=== PATIENT | female | born 2005 | race Hispanic/Latino ===

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

== ENCOUNTER 2025-02-11 23:47 | Emergency (ER) | payer OTHER, SELFPAY ==
--- NOTE | ~2025-02-11 | CT_ITS ---
EXAMINATION: CT abdomen pelvis w con DATE: 02/12/2025 00:41 INDICATION: Abdomen pain TECHNIQUE: Computed tomography (CT) of the abdomen and pelvis was performed with 100 cc Omnipaque 350 intravenous contrast. The dose-length product was 529.07 mGy-cm. Automated exposure control and iterative reconstruction technique were employed. COMPARISON: None. FINDINGS: Lung bases are unremarkable. Heart size normal. No significant pleural or pericardial effusion. Fatty infiltration of the liver. The spleen, pancreas, adrenal glands and kidneys are unremarkable. Nonobstructive bowel gas pattern. Normal appendix. No significant vascular abnormality. No lymphadenopathy. No abnormal pelvic masses or fluid collections. No free air or free fluid. No acute osseous abnormality. IMPRESSION: 1. No acute abdominal abnormality. Reviewed, dictated and finalized at location O.
[2025-02-11 23:56] VITALS: BP 141/79; PULSE 104; RESP 16; TEMP 36.9; O2SAT 100
[2025-02-12] LABS: BEDSIDEPREGUCG Negative (Negative)
[2025-02-12 00:12] LABS: Hematocrit 39.9 % (37.0-47.0); Hemoglobin 12.9 g/dL (12.0-15.0); Immature Granulocyte Percent A 0.3 % (0-0.5); Lymphocytes Absolute Auto 3.80 K/mm3 (0.9-3.2); Mean Corpuscular HGB Conc 32.3 g/dl (32-36); Mean Corpuscular Hemoglobin 27.3 pg (26-34); Mean Corpuscular Volume 84.5 fl (80-100); Nucleated Red Blood Cells Absolute Auto 0.000 K/mm3 (0.0-0.012); Nucleated Red Blood Cells Perc 0.0 % (0.0-0.2); Platelet Count Result 436 k/mm3 (150-375); Red Blood Count 4.72 M/mm3 (4.2-5.4); White Blood Count 11.6 K/mm3 (4.5-10.0)
[2025-02-12 00:18] LABS: Alanine Aminotransferase 25 U/L (6-35); Albumin Level 4.6 g/dL (3.7-5.6); Alkaline Phosphatase 84 U/L (45-116); Anion Gap 8 mmol/L (4-12); Aspartate Amino Transferase 28 U/L (14-36); Bilirubin,Total 0.4 mg/dL (0.2-1.3); Blood Urea Nitrogen 17 mg/dL (8-21); Calcium 9.4 mg/dL (8.9-10.7); Carbon Dioxide 25 mmol/L (22-30); Chloride 104 mmol/L (98-107); Estimated Glomerular Filt Rate > 60; Glucose 94 mg/dL (65-110); Lipase 76 U/L (23-300); Magnesium 2.0 mg/dL (1.6-2.3); Potassium 3.7 mmol/L (3.4-5.0); Sodium 137 mmol/L (134-143); Total Protein 8.0 g/dL (6.3-8.6)
[2025-02-12 00:35] LABS: Add Urine Microscopic? NO; Appearance Urine Clear (Clear); Glucose Urine UA Negative (Negative); Leukocyte Esterase Ur Negative LEU/UL (Negative); Nitrate Urine Negative (Negative); Specific Grav Ur 1.025 (1.001-1.035)
[2025-02-12] MEDS: SODIUM CHLORIDE 0.9% IV 1,000 ML 999 ML IV CONT (00:44)
--- NOTE | 2025-02-12 01:03 | ED.ABDPAIN ---
HPI - Abdominal Pain General Chief Complaint: Abdominal Pain Stated Complaint: abd pain Time Seen by Provider: 02/11/25 23:54 History of Present Illness HPI narrative: Patient is a 19-year-old female who presents emergency department this evening complaining of generalized abdominal pain. patient is that the pain has been ongoing for the past 2 weeks and it is worse after she eats. States that initially it originated in her mid to lower abdomen but now radiates to her bilateral upper quadrants. Denies any history of gallstones or pancreatitis. Denies any nausea vomiting or diarrhea. No additional symptoms or concerns at this time. Related Data Home Medications ?Medication ?Instructions ?Recorded ?Confirmed ?Last Taken ?Type oral contraceptive PO 09/06/24 11/08/24 Unknown History Allergies Allergy/AdvReac Type Severity Reaction Status Date / Time No Known Allergies Allergy Verified 11/08/24 13:37 Review of Systems Review of Systems: All systems are reviewed and are negative unless stated otherwise in the HPI. [facility] Past Medical History Medical History Sinus headache Facial pain Nasal congestion Allergic rhinitis Hypertrophy of inferior nasal turbinate No pertinent past medical history Social History Social History Social History: Caffeine-None Smoking status: Never smoker Alcohol intake: never Substance use: never Substance use type: does not use Do You Feel Safe in your Home?: Yes Lack of Transportation: No Lack of Food: Never True Current Housing: I Have Housing Concerned About Future Housing: No Difficulty Paying Gas/Electric Bills: No Difficulty Paying for Meds: No Currently Unemployed: No Education: High School Diploma/GED Difficulty w/ Childcare or Family Care: No Exam Narrative: General: Alert, awake, afebrile, in no acute distress. HEENT: PERRL, no rhinorrhea, no post nasal drip, oropharynx clear. Neck: Trachea midline, no JVD, no lymphadenopathy. Cardiovascular: Regular rate and rhythm, no murmurs, rubs or gallops, no peripheral edema. Respiratory: Clear to auscultation bilaterally, no tachypnea, no wheezing, no rhonchi, no rubs, no respiratory distress. Abdomen: Soft, nontender, nondistended, no rebound, no guarding, no peritoneal signs. Musculoskeletal: No joint swelling or deformity, normal muscle tone. Skin: No rashes or petechia, no signs of infection. Psychiatric: Alert and oriented, normal behavior and judgment for situation. Neurological: Alert and oriented to person, place, and time. Follows all commands. No focal deficits, speech is clear and fluent. Course Vital Signs Vital signs: Vital Signs Temperature 98.5 F 02/11/25 23:56 Pulse Rate 104 H 02/11/25 23:56 Respiratory Rate 16 02/11/25 23:56 Blood Pressure 141/79 H 02/11/25 23:56 Pulse Oximetry 100 02/11/25 23:56 Oxygen Delivery Room Air 02/11/25 23:56 Temperature 98.5 F 02/11/25 23:56 Pulse Rate 104 H 02/11/25 23:56 Respiratory Rate 16 02/11/25 23:56 Blood Pressure 141/79 H 02/11/25 23:56 Pulse Oximetry 100 02/11/25 23:56 Oxygen Delivery Room Air 02/11/25 23:56 MDM - Abdominal Pain MDM Narrative Medical decision making narrative: The patient was evaluated by myself in the emergency department. History is obtained from patient who is an independent historian and physical exam was performed. External medical records were reviewed at this time. IV was established and pertinent tests were ordered. Patient was administered 1 L IV fluid bolus with normal saline. Laboratory results obtained revealing no acute process. Urinalysis unremarkable. Imaging studies obtained included CT abdomen pelvis with IV contrast which was independently interpreted by me revealing no acute process, which is pending final radiology interpretation. Differential diagnosis considerations include cholecystitis, biliary colic, pancreatitis, appendicitis, constipation. Comorbidities impacting this visit include none. I have evaluated and discussed social determinants of health with the patient that could potentially impact subsequent diagnosis and treatment plans. On repeat assessment of the patient, reevaluation revealed that the patient is doing well and is in no acute distress. Patient symptoms have improved since she arrived to our emergency department. Repeat vital signs were all reviewed and noted to be stable. Differential diagnosis and treatment plan were discussed with the patient at bedside. Patient agrees with discussion and after shared medical decision making agrees with discharge. All questions were answered to the patient's satisfaction. Patient will follow up with her PCP in 3-5 days. She was also provided with a GI referral instructed to call to set up a follow-up appointment if she continues to have abdominal pain. Patient was provided with strict return precautions and instructed to return to the emergency department if any new or worsening symptoms develop. The patient was discharged in stable condition. Lab Data 02/12/25 00:00 02/11/25 23:59 Labs: Lab Results 02/11/25 02/12/25 Range/Units 23:59 00:00 WBC 11.6 H (4.5-10.0) K/mm3 RBC 4.72 (4.2-5.4) M/mm3 Hgb 12.9 (12.0-15.0) g/dL Hct 39.9 (37.0-47.0) % MCV 84.5 (80-100) fl MCH 27.3 (26-34) pg MCHC 32.3 (32-36) g/dl RDW 13.4 (11.5-14.5) % Plt Count 436 H (150-375) k/mm3 MPV 9.1 (7.4-10.4) fl Immature Gran % (Auto) 0.3 (0-0.5) % Neut % (Auto) 57.5 (45.5-73.1) % Lymph % (Auto) 32.7 (18.3-44.2) % [place] % (Auto) 7.4 (2.6-8.5) % Eos % (Auto) 1.4 (0-4.4) % Baso % (Auto) 0.7 (0.2-1.2) % Lymph # (Auto) 3.80 H (0.9-3.2) K/mm3 [place] # (Auto) 0.9 H (0.1-0.6) K/mm3 Eos # (Auto) 0.2 (0-0.3) K/mm3 Baso # (Auto) 0.1 (0.0-0.1) K/mm3 Abs Immat Gran (auto) 0.04 H (0.00-0.031) K/mm3 Absolute Neuts (auto) 6.7 (1.3-6.7) K/mm3 Absolute Nucleated RBC 0.000 (0.0-0.012) K/mm3 Nucleated RBC % 0.0 (0.0-0.2) % Sodium 137 (134-143) mmol/L Potassium 3.7 (3.4-5.0) mmol/L Chloride 104 (98-107) mmol/L Carbon Dioxide 25 (22-30) mmol/L Anion Gap 8 (4-12) mmol/L BUN 17 (8-21) mg/dL Creatinine 0.74 (0.7-1.0) mg/dL Estim Creat Clear Calc Not Reportable Estimated GFR > 60 (59 - ) Glucose 94 (65-110) mg/dL Calcium 9.4 (8.9-10.7) mg/dL Magnesium 2.0 (1.6-2.3) mg/dL Total Bilirubin 0.4 (0.2-1.3) mg/dL AST 28 (14-36) U/L ALT 25 (6-35) U/L Alkaline Phosphatase 84 (45-116) U/L Total Protein 8.0 (6.3-8.6) g/dL Albumin 4.6 (3.7-5.6) g/dL Lipase 76 (23-300) U/L Urine Color Yellow (Yellow) Urine Appearance Clear (Clear) Urine pH 6.5 (5.0-9.0) Ur Specific [place] 1.025 (1.001-1.035) Urine Protein Negative (Negative) mg/dL Urine Glucose (UA) Negative (Negative) mg/dL Urine Ketones Negative (Negative) mg/dL Ur Blood (Man) Negative (Negative) Urine Nitrate Negative (Negative) Urine Bilirubin Negative (Negative) Urine Urobilinogen 1.0 (<2.0) mg/dL Leukocyte Esterase Rfl Negative (Negative) ELDA/UL POC Urine HCG, Qual Negative (Negative) Discharge Plan Discharge Clinical Impression: Abdominal pain Patient Disposition: Home Condition: Improved Instructions: Antibiotic Form, Abdominal Pain (ED) Additional Instructions: Please follow-up with your family doctor within the next 3-5 days. His emergency department if any new or worsening symptoms develop. Your provided with a GI referral and instructed to call to set up a follow-up appointment if he continued to have abdominal pain. Patient Language: [place] Prescriptions: No Action oral contraceptive PO azelastine 137 mcg (0.1 %) spray,non-aerosol 1 spray intranasal Q12H 30 Days Qty: 30 1RF Rx Instructions: administer into each nostril fluticasone propionate 50 mcg/actuation spray,suspension 2 spray intranasal DAILY 30 Days Qty: 16 1RF Rx Instructions: administer into each nostril Follow-up/Referrals: Sean,MATIAS Bobo [Primary Care Provider] - 1 Week Xu Isbell MD [Physician, Gastroenterology] - 3 Days Time of Disposition: 01:37
[2025-02-12 01:51] VITALS: BP 120/62; PULSE 82; RESP 16; O2SAT 99
== END 2025-02-12 01:51 | disposition home or self-care (01) ==
PROVIDERS: Emergency Provider Emergency Medicine; PCP Registered Nurse
DX: R10.84 Generalized abdominal pain (principal); Z79.3 Long term (current) use of hormonal contraceptives
CPT/HCPCS: 36415; 74177; 80053; 81003; 81025; 83690; 83735; 85025; 96360; 99284; J7030; Q9967

== ENCOUNTER 2025-04-05 02:06 | Emergency (ER) | payer OTHER, SELFPAY ==
[2025-04-05] VITALS (9 sets, daily range): BP systolic 102–130; BP diastolic 54–77; PULSE 75–101; RESP 18–25; TEMP 36.8–36.9; O2SAT 99–100
--- NOTE | ~2025-04-05 | XR_ITS ---
Abdominal radiograph(s) INDICATION: Evaluate stool burden COMPARISON: CT abdomen and pelvis 02/12/2025 TECHNIQUE: 2 views AP abdomen FINDINGS: Scattered colonic gas and stool. Moderate volume. Small bowel loops not well seen. No evidence of organomegaly. No abnormal abdominal calcifications. No acute bony abnormality. IMPRESSION: 1. Moderate volume stool. Reviewed, dictated and finalized at location R. IMPRESSION: 1. Moderate volume stool.
--- OUTSIDE RECORDS SUMMARY | 2025-04-05 02:08 | XMS_ITS | Clinical Summary ---
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
--- OUTSIDE RECORDS SUMMARY | 2025-04-05 02:08 | XMS_ITS | Data Portability ---
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 Assessment Encounter Date Assessment Date Assessment LastModified by Organization Details LastModified Time 10/11/2024 10/11/2024 follow up in one month for sertraline Not available 10/11/2024 13:01:22 Plan of Treatment Reminders Order Date Submit Date Provider Last Modified By Organization Details Last Modified Time Details Appointments NEW PATIE NT 45 2024 01:00P M Ayah Riddle LCSW Not available Not available Not available ANY 15 2024 01:15P M DESIRE WhiteP-Bc Not available Not available Not available ANY 15 2024 09:00A M VASYL White-García Not available Not available Not available Lab gamma -glut amyl trans feras e (ggt) , serum 2024 025 [facility], [address] [facility], [address], [place], [address], 03/07/2025 20:09:52 hepat itis panel (A+B+ C), acute , serum 2024 025 [facility], [address] [facility], [address], [place], [address], 03/07/2025 20:09:51 autoi mmune hepat itis diagn ostic panel , serum 2024 025 [facility], [address], [address], [place], [address], 03/07/2025 20:09:52 lipid panel , serum 2024 025 [facility], [address] [facility], [address], [place], [address], 03/04/2025 23:08:39 CT + NG RNA, PCR, unspe cifie d speci men 2024 025 [facility], [address], [address], [place], [address], 03/07/2025 20:09:52 TSH + free T4, serum 2024 025 [facility], [address] [facility] [address], [address], [place], [address], 11/11/2024 08:28:15 HbA1c (hemo globi n A1c), blood 2024 025 [facility] In-Office Order, Internal Use Only DO Not Attach Compendium DO Not Attach Compendium, Do Not Delete/merge, 11/10/2024 13:51:59 pregn vikki test, urine 2024 In-Office Order, Internal Use Only DO Not Attach Compendium DO Not Attach Compendium, Do Not Delete/merge, 10/11/2024 12:38:55 lipid panel , serum 2024 025 [facility], [address], [address], [place], [address], 07/15/2024 22:07:41 CMP, serum or plasm a 2024 025 [facility], [address], [address], [place], [address], 07/15/2024 22:07:42 HbA1c (hemo globi n A1c), blood 2024 [facility] In-Office Order, Internal Use Only DO Not Attach Compendium DO Not Attach Compendium, Do Not Delete/merge, 07/15/2024 16:54:05 RPR (rapi d plasm a reagi n), serum 2024 [facility], [address] [facility] [address], [address], [place], [address], 07/16/2024 21:07:39 CT + NG RNA, PCR, unspe cifie d speci men 2024 [facility], [address], [address], [place], [address], 07/16/2024 21:07:36 basic metab olic 1998 panel , serum or plasm a 2024 025 [email or web address] [facility], [address], [address], [place], [address], 08/05/2024 10:03:55 CBC w/ auto diff 2024 [facility], [address], [address], [place], [address], 07/15/2024 22:07:44 urina lysis , dipst ick 2024 [facility] In-Office Order, Internal Use Only DO Not Attach Compendium DO Not Attach Compendium, Do Not Delete/merge, 07/15/2024 16:51:54 TSH, ultra -sens itive , serum 2024 [facility], [address] [facility], [address], [place], [address], 07/16/2024 21:07:38 Referral zeyad morales refer ral - 19 y/o HF with worse maninder visua l acuit y. Havin g diffi culty jacki reno at night . She wears glass es. 2024 deyanira [facility], [address], [place], [address], 03/16/2025 14:45:58 cogni tive behav ioral thera py refer ral 2024 [email or web address] Not available 10/15/2024 11:39:28 ENT surge ry refer ral 2024 [facility] (Ent), [facility] [address], [place], [address], 01/17/2025 15:04:13 Procedures None recor ded. Surgeries None recor ded. Imaging US, liver 2024 [facility]), [address] [place], [address], 03/09/2025 09:28:56 Medication Orders Dryso l 20 % topic al solut ion 2024 [facility], [address] [place], [address], 03/04/2025 15:23:33 Pepci d 20 mg table t 2024 025 [facility], [address] [place], [address], 03/04/2025 15:34:43 Slynd 4 mg (28) table t 2024 025 [facility], [address] [place], [address], 11/10/2024 13:35:15 Dryso l 20 % topic al solut ion 2024 [facility], [address] [place], [address], 11/10/2024 13:35:20 sertr gerry 50 mg table t 2024 [facility], [address] [place] [address], [address], 10/11/2024 13:00:59 Linze ss 145 mcg capsu le 2024 [facility], [address] [place] [address], [address], 10/11/2024 12:25:35 hydro corti sone 2.5 % topic al cream with perin eal appli cator 2024 [facility], [address] [place] [address], [address], 10/11/2024 12:25:42 Slynd 4 mg (28) table t 2024 [facility], [address] [place] [address], [address], 07/15/2024 16:40:19 Patient TargetsNo targets recorded. Patient Instructions Encounter Date Encounter Id Patient Instructions Last Modified By Organization Details Last Modified Time 07/15/2024 [id number] vacuna contra la influenza (gripe): instrucciones de cuidado - [influenza (flu) vaccine: care instructions] yarauz Not available 07/15/2024 16:11:29 Cuando desea baj ar de peso: Instrucciones de cuidado - [When You Want to Lose Weight: Care Instructions] yarauz Not available 07/15/2024 16:11:28 per odos menstruales abundantes: instrucciones de cuidado - [heavy menstrual periods: care instructions] yarauz Not available 07/15/2024 16:37:28 aprenda acerca d el peso saludable - [learning about healthy weight] yarauz Not available 07/15/2024 16:11:28 ndice de masa corporal: instrucciones de cuidado - [body mass index: care instructions] yarauz Not available 07/15/2024 16:11:29 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 need for daily exercise, diet management drink water auto relaxation -Always present to ER or [...] months Healthy diet Increase physical activity Abstinence/condoms yarauz Not available 07/15/2024 16:41:21 07/29/2024 [id number] estre imiento: instrucciones de cuidado - [constipation: care instructions] yarauz Not available 07/29/2024 15:17:10 hemorroides: instrucciones de cuidado - [hemorrhoids: care instructions] yarauz Not available 07/29/2024 15:17:10 Drink at least 6 5 ounces of water daily Increase fiber ie fruit vegetables May try Fiber One or Raisin BRan May add Flaxseed Powder 1-3 Tablespoons in liquids or salads etc., If several days with no BMs 4-5 days may try Miralax as per bottle directions yarauz Not available 07/29/2024 15:17:09 10/11/2024 [id number] A healthy lifestyle: care instructions Not available 10/11/2024 12:38:55 Cuando desea baj ar de peso: Instrucciones de cuidado - [When You Want to Lose Weight: Care Instructions] Not available 10/11/2024 12:38:55 11/10/2024 [id number] Cuando desea baj ar de peso: Instrucciones de cuidado - [When You Want to Lose Weight: Care Instructions] yarauz Not available 11/10/2024 13:35:15 aprenda sobre m todos anticonceptivos: P ldoras combinadas - [learning about control: combination pills] yarauz Not available 11/10/2024 13:35:15 sudoraci n anormal: instrucciones de cuidado - [abnormal sweating: care instructions] yarauz Not available 11/10/2024 13:35:14 sudoraci n anormal: instrucciones de cuidado - [abnormal sweating: care instructions] yarauz Not available 11/10/2024 13:35:15 Risks of hormona l control reviewed, including but not limited to thrombosis, embolism, pulmonary embolism, stroke, disability, sexual dysfunction & . Patient understands these risk are increased with smoking. Patient understands that these risks may be increased when using the patch (Ortho-Evra) or the vaginal ring (Nuva-Ring) when compared to oral control pills. Risks of bone loss with Depo Provera also reviewed. All questions answered. Pt understands & accepts risks. Instructions/warnin g signs given. yarauz Not available 11/10/2024 13:35:32 03/04/2025 [id number] sudoraci n anormal: instrucciones de cuidado - [abnormal sweating: care instructions] yarauz Not available 03/04/2025 15:23:28 dolor abdominal: instrucciones de cuidado - [abdominal pain: care instructions] yarauz Not available 03/04/2025 15:34:35 Cuando harsh tory mcghee de peso: Instrucciones de cuidado - [When You Want to Lose Weight: Care Instructions] yarauz Not available 03/04/2025 15:23:27 visual acuity* yarauz Not available 0 03/04/2025 17:24:43 Weight loss lead s to improvement in liver biochemical tests, liver histology, serum insulin levels and quality of life. Maintain a healthy weight. Lose weight if you are overweight or obese Eat a healthy diet. Try to limit salt and sugar. You can eat fruits, vegetables and whole grains. The Mediterranean Diet is a good choice. Exercise regularly. This can help you lose weight and reduce fat in the liver Lower your cholesterol and triglycerides Avoid alcohol Only take medicines that you need and follow dosing recommendations. If you want to take any dietary supplements like vitamins and herbal remedies, please call the office first. No Tylenol yaraary Not available 03/04/2025 15:47:46 abnormal lipids: In order to manage needs to make LSM. 1. Reduced saturated and trans fats found in red meat, butter, full dairy products and processed foods. 2. Increase intake of healthy fats, such as monounsaturated fats (Avocadoes, olive oil, nuts) and polyunsaturated fats like fatty fish such as salmon, flaxseeds, mackerel-omega 3 fatty acids. 3. Boost fiber consumption-soluble fiber found in lentils, beans, fruits which help lower LDL and ApoB levels. 4. Limit refined carbs and added sugar 5. consider plant based diet and /or mediterranean diet 6. increase physical activity at least 150 minutes of moderate intensity aerobics ie walking, cycling, swimming, elliptical 7. incorporate strength training exercises to build lean muscle 8. Stay active, avoid prolonged sitting periods 9. achieve and maintain a healthy weight 10. Manage stress 11. Quit smoking and limit alcohol intake Dermatology consult for potential botox for hyperhydrosis Weight loss leads to improvement in liver biochemical tests, liver histology, serum insulin levels and quality of life. Maintain a healthy weight. Lose weight if you are overweight or obese Eat a healthy diet. Try to limit salt and sugar. You can eat fruits, vegetables and whole grains. The Mediterranean Diet is a good choice. Exercise regularly. This can help you lose weight and reduce fat in the liver Lower your cholesterol and triglycerides Avoid alcohol Only take medicines that you need and follow dosing recommendations. If you want to take any dietary supplements like vitamins and herbal remedies, please call the office first. 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 Having difficulty driving at night. She wears glasses. Referring Physician: Jeramie Mast, [facility], Encounter Date: 03/04/2025 Results Created Date Observation Date Name Description Value Unit Range Abnormal Flag Note LastModifiedBy Organization Detail LastModifiedTime 07/15/1907/15/2024 LIPID PANEL cholesterol, total 191 mg/dL 100-16 9 above high normal Not Available [facility] [address] [place], [address], 07/15/2024 22:07:41 07/15/19 25 07/15/2024 LIPID PANEL triglyceride s 88 mg/dL 0-89 Not Available [facility] [address] [place], [address], 07/15/2024 22:07:41 07/15/1907/15/2024 LIPID PANEL HDL cholesterol 56 mg/dL 40-999 Not Available [facility] [address] [place], [address], 07/15/2024 22:07:41 07/15/19 25 07/15/2024 LIPID PANEL VLDL cholesterol martita 18 mg/dL 5-40 Not Available [facility] [address] [place], [address], 07/15/2024 22:07:41 07/15/19 25 07/15/2024 LIPID PANEL LDL chol calc (nih) 130 mg/dL 0-109 above high normal Not Available [facility] [address] [place], [address], 07/15/2024 22:07:41 07/15/19 25 07/15/2024 COMP. METAB OLIC PANEL (14) glucose 84 mg/dL 70-99 Not Available [facility] [address] [place] [address], [address], 07/15/2024 22:07:42 07/15/19 25 07/15/2024 COMP. METAB OLIC PANEL (14) BUN 14 mg/dL 6-20 Not Available [facility] [address] [place] [address], [address], 07/15/2024 22:07:42 07/15/19 25 07/15/2024 COMP. METAB OLIC PANEL (14) creatinine 0.49 mg/dL 0.76-1 .27 below low normal Not Available [facility] [address] [place] [address], [address], 07/15/2024 22:07:42 07/15/19 25 07/15/2024 COMP. METAB OLIC PANEL (14) eGFR 139 >=60 Units for eGFR value s are mL/mi n/1.7 3 The eGFR Calcu latio n has not been valid ated for patie nts under the age of 18. If test resul ts are displ ayed for a patie nt under the age of 18, disre shannon that value . Not Available [facility] [address] [place] [address], [address], 07/15/2024 22:07:42 07/15/19 25 07/15/2024 COMP. METAB OLIC PANEL (14) BUN/creatini ne ratio 29 9-23 above high normal Not Available [facility] [address] [place] [address], [address], 07/15/2024 22:07:42 07/15/19 25 07/15/2024 COMP. METAB OLIC PANEL (14) sodium 139 mmol/ L 134-14 4 Not Available [facility] [address] [place], [address], 07/15/2024 22:07:42 07/15/19 25 07/15/2024 COMP. METAB OLIC PANEL (14) potassium 4.2 mmol/ L 3.5-5. 2 Not Available [facility] [address] [place] [address], [address], 07/15/2024 22:07:42 07/15/19 25 07/15/2024 COMP. METAB OLIC PANEL (14) chloride 102 mmol/ L 96-106 Not Available [facility] [address] [place] [address], [address], 07/15/2024 22:07:42 07/15/19 25 07/15/2024 COMP. METAB OLIC PANEL (14) carbon dioxide, total 27 mmol/ L 20-29 Not Available [facility] [address] [place], [address], 07/15/2024 22:07:42 07/15/19 25 07/15/2024 COMP. METAB OLIC PANEL (14) calcium 9.7 mg/dL 8.7-10 .2 Not Available [facility] [address] [place] [address], [address], 07/15/2024 22:07:42 07/15/19 25 07/15/2024 COMP. METAB OLIC PANEL (14) protein, total 7.7 g/dL 6.0-8. 5 Not Available [facility] [address] [place], [address], 07/15/2024 22:07:42 07/15/19 25 07/15/2024 COMP. METAB OLIC PANEL (14) albumin 4.5 g/dL 4.0-5. 0 Not Available [facility] [address] [place], [address], 07/15/2024 22:07:42 07/15/19 25 07/15/2024 COMP. METAB OLIC PANEL (14) globulin, total 3.2 g/dL 1.5-4. 5 Not Available [facility] [address] [place], [address], 07/15/2024 22:07:42 07/15/19 25 07/15/2024 COMP. METAB OLIC PANEL (14) A/G ratio 1.0 1.2-2. 2 below low normal Not Available [facility] [address] [place], [address], 07/15/2024 22:07:42 07/15/19 25 07/15/2024 COMP. METAB OLIC PANEL (14) bilirubin, total 0.3 mg/dL 0.0-1. 2 Not Available [facility] [address] [place], [address], 07/15/2024 22:07:42 07/15/19 25 07/15/2024 COMP. METAB OLIC PANEL (14) alkaline phosphatase 100 IU/L 42-106 Not Available [facility] [address] [place], [address], 07/15/2024 22:07:42 07/15/19 25 07/15/2024 COMP. METAB OLIC PANEL (14) AST (SGOT) 20 IU/L 0-40 Not Available [facility] [address] [place], [address], 07/15/2024 22:07:42 07/15/19 25 07/15/2024 COMP. METAB OLIC PANEL (14) ALT (SGPT) 21 IU/L 0-32 Not Available [facility] [address] [place], [address], 07/15/2024 22:07:42 07/15/19 25 07/15/2024 CBC WITH DIFFE RENTI AL/PL ATELE T WBC 9.8 x10e3 /uL 3.4-10 .8 Not Available [facility] [address] [place], [address], 07/15/2024 22:07:43 07/15/19 25 07/15/2024 CBC WITH DIFFE RENTI AL/PL ATELE T RBC 4.72 x10e6 /uL 3.77-5 .28 Not Available [facility] [address] [place], [address], 07/15/2024 22:07:43 07/15/19 25 07/15/2024 CBC WITH DIFFE RENTI AL/PL ATELE T hemoglobin 12.2 g/dL 11.1-1 5.9 Not Available [facility] [address] [place], [address], 07/15/2024 22:07:43 07/15/19 25 07/15/2024 CBC WITH DIFFE RENTI AL/PL ATELE T hematocrit 37.8 % 34.0-4 6.6 Not Available [facility] [address] [place], [address], 07/15/2024 22:07:43 07/15/19 25 07/15/2024 CBC WITH DIFFE RENTI AL/PL ATELE T MCV 80 fL 79-97 Not Available [facility] [address] [place], [address], 07/15/2024 22:07:43 07/15/19 25 07/15/2024 CBC WITH DIFFE RENTI AL/PL ATELE T MCH 25.8 pg 26.6-3 3.0 below low normal Not Available [facility] [address] [place], [address], 07/15/2024 22:07:43 07/15/19 25 07/15/2024 CBC WITH DIFFE RENTI AL/PL ATELE T MCHC 32.3 g/dL 31.5-3 5.7 Not Available [facility] [address] [place], [address], 07/15/2024 22:07:43 07/15/19 25 07/15/2024 CBC WITH DIFFE RENTI AL/PL ATELE T RDW 13.7 % 11.5-1 4.5 Not Available [facility] [address] [place], [address], 07/15/2024 22:07:43 07/15/19 25 07/15/2024 CBC WITH DIFFE RENTI AL/PL ATELE T platelets 520 x10e3 /uL 150-45 0 above high normal Not Available [facility] [address] [place], [address], 07/15/2024 22:07:43 07/15/19 25 07/15/2024 CBC WITH DIFFE RENTI AL/PL ATELE T neutrophils 61 % notest b. Not Available [facility] [address] [place], [address], 07/15/2024 22:07:43 07/15/19 25 07/15/2024 CBC WITH DIFFE RENTI AL/PL ATELE T lymphs 31 % notest b. Not Available [facility] [address] [place], [address], 07/15/2024 22:07:43 07/15/19 25 07/15/2024 CBC WITH DIFFE RENTI AL/PL ATELE T monocytes 6 % notest b. Not Available [facility] [address] [place], [address], 07/15/2024 22:07:43 07/15/19 25 07/15/2024 CBC WITH DIFFE RENTI AL/PL ATELE T eos 1 % notest b. Not Available [facility] [address] [place], [address], 07/15/2024 22:07:43 07/15/19 25 07/15/2024 CBC WITH DIFFE RENTI AL/PL ATELE T basos 1 % notest b. Not Available [facility] [address] [place], [address], 07/15/2024 22:07:43 07/15/19 25 07/15/2024 CBC WITH DIFFE RENTI AL/PL ATELE T neutrophils (absolute) 6.0 x10e3 /uL 1.4-7. 0 Not Available [facility] [address] [place], [address], 07/15/2024 22:07:43 07/15/19 25 07/15/2024 CBC WITH DIFFE RENTI AL/PL ATELE T lymphs (absolute) 3.0 x10e3 /uL 0.7-3. 1 Not Available [facility] [address] [place], [address], 07/15/2024 22:07:43 07/15/19 25 07/15/2024 CBC WITH DIFFE RENTI AL/PL ATELE T monocytes(ab solute) 0.6 x10e3 /uL 0.1-0. 9 Not Available [facility] [address] [place], [address], 07/15/2024 22:07:43 07/15/19 25 07/15/2024 CBC WITH DIFFE RENTI AL/PL ATELE T eos (absolute) 0.1 x10e3 /uL 0.0-0. 4 Not Available [facility] [address] [place], [address], 07/15/2024 22:07:43 07/15/19 25 07/15/2024 CBC WITH DIFFE RENTI AL/PL ATELE T baso (absolute) 0.1 x10e3 /uL 0.0-0. 2 Not Available [facility] [address] [place], [address], 07/15/2024 22:07:43 07/15/19 25 07/15/2024 CBC WITH DIFFE RENTI AL/PL ATELE T immature granulocytes 0.3 % notest b. Not Available [facility] [address] [place], [address], 07/15/2024 22:07:43 07/15/19 25 07/15/2024 CBC WITH DIFFE RENTI AL/PL ATELE T immature grans (abs) 0.0 x10e3 /uL 0.0-0. 1 Not Available [facility] [address] [place], [address], 07/15/2024 22:07:43 07/15/19 25 07/15/2024 CBC WITH DIFFE RENTI AL/PL ATELE T NRBC 0 % 0-0 Not Available [facility] [address] [place], [address], 07/15/2024 22:07:43 07/15/19 25 07/16/2024 CHLAM YDIA/ GC AMPLI FICAT ION chlamydia trachomatis, MARK NEGATI VE negati ve Not Available [facility] ([facility]) [address] [place], [address], 07/16/2024 21:07:36 07/15/19 25 07/16/2024 CHLAM YDIA/ GC AMPLI FICAT ION neisseria gonorrhoeae, MARK NEGATI VE negati ve Not Available [facility] ([facility]) [address] [place], [address], 07/16/2024 21:07:36 07/15/19 25 07/16/2024 TSH RFX ON ABNOR MAL TO FREE T4 TSH 0.840 uIU/m L 0.450- 4.500 Not Available [facility] ([facility]) [address] [place], [address], 07/16/2024 21:07:37 07/15/19 25 07/16/2024 RPR, RFX QN RPR/C ONFIR M TP RPR NON REACTI VE nonrea ctive Not Available [facility] ([facility]) [address] [facility], [place], [address], 07/16/2024 21:07:39 07/15/19 25 07/15/2024 HbA1c (hemo [...] DO Not Attach Compendium, Do Not Delete/merge, Counts include 234 beds at the [facility] 07/15/2024 16:09:42 07/15/19 25 07/15/2024 urina lysis , dipst ick Blood Negati ve Not Available In-Office Order Internal Use Only DO Not Attach Compendium DO Not Attach Compendium, Do Not Delete/merge, Counts include 234 beds at the [facility] 07/15/2024 16:09:42 07/15/19 25 07/15/2024 urina lysis , dipst ick Specific Gantt 1.025 Not Available In-Off ice Order Internal Use Only DO Not Attach Compendium DO Not Attach Compendium, Do Not Delete/merge, Counts include 234 beds at the [facility] 07/15/2024 16:09:42 07/15/19 25 07/15/2024 urina lysis , dipst ick Ketone Negati ve Not Available In-Office Order Internal Use Only DO Not Attach Compendium DO Not Attach Compendium, Do Not Delete/merge, Counts include 234 beds at the [facility] 07/15/2024 16:09:42 07/15/19 25 07/15/2024 urina lysis , dipst ick Bilirubin Negati ve Not Available In-Office Order Internal Use Only DO Not Attach Compendium DO Not Attach Compendium, Do Not Delete/merge, Counts include 234 beds at the [facility] 07/15/2024 16:09:42 07/15/19 25 07/15/2024 urina lysis , dipst ick Glucose Negati ve Not Available In-Office Order Internal Use Only DO Not Attach Compendium DO Not Attach Compendium, Do Not Delete/merge, Counts include 234 beds at the [facility] 07/15/2024 16:09:42 07/15/19 25 07/15/2024 urina lysis , dipst ick Appearance Clear Not Available In-Offi ce Order Internal Use Only DO Not Attach Compendium DO Not Attach Compendium, Do Not Delete/merge, Counts include 234 beds at the [facility] 07/15/2024 16:09:42 07/15/19 25 07/15/2024 urina lysis , dipst ick Color Yellow Not Available In-Office Order Internal Use Only DO Not Attach Compendium DO Not Attach Compendium, Do Not Delete/merge, [id number] 07/15/2024 16:09:42 10/12/19 25 10/11/2024 pregn vikki test, urine HCG negati ve Not Available In-Office Order Internal Use Only DO Not Attach Compendium DO Not Attach Compendium, Do Not Delete/merge, [id number] 10/11/2024 12:29:12 11/11/19 25 11/11/2024 TSH+F REE T4 TSH 0.718 uIU/m L 0.450- 4.500 Not Available [facility] ([facility]) [address] [facility], [place], [address], 11/11/2024 08:28:15 11/11/19 25 11/11/2024 TSH+F REE T4 T4,free(dire ct) 1.15 NG/dL 0.93-1 .60 Not Available [facility] ([facility]) [address] [facility], [place], [address], 11/11/2024 08:28:15 11/11/19 25 11/10/2024 HbA1c (hemo globi n A1c), blood HbA1c 5.2 Not Available In-Office Order Internal Use Only DO Not Attach Compendium DO Not Attach Compendium, Do Not Delete/merge, [id number] 11/10/2024 13:26:27 03/04/20 25 03/04/2025 LIPID PANEL cholesterol, total 192 mg/dL 100-16 9 above high normal Not Available [facility] [address] [place], [address], 03/04/2025 23:08:39 03/04/20 25 03/04/2025 LIPID PANEL triglyceride s 133 mg/dL 0-89 above high normal Not Available [facility] [address] [place], [address], 03/04/2025 23:08:39 03/04/20 25 03/04/2025 LIPID PANEL HDL cholesterol 52 mg/dL 40-999 Not Available [facility] [address] [place], [address], 03/04/2025 23:08:39 03/04/20 25 03/04/2025 LIPID PANEL VLDL cholesterol martita 27 mg/dL 5-40 Not Available [facility] [address] [place], [address], 03/04/2025 23:08:39 03/04/20 25 03/04/2025 LIPID PANEL LDL chol calc ([facility]) 133 mg/dL 0-109 above high normal Not Available [facility] [address] [place], [address], 03/04/2025 23:08:39 03/04/20 25 03/05/2025 ACUTE HEPAT ITIS hep A Ab, IgM NEGATI VE negati ve A negat anastasia anti- HAV IgM resul t sugge sts no recen t or curre nt HAV infec tion. Not Available [facility] ([facility]) [address] [place], [address], 03/07/2025 20:09:50 03/04/20 25 03/05/2025 ACUTE HEPAT ITIS HBsAg screen NEGATI VE negati ve Not Available [facility] ([facility]) [address] [place], [address], 03/07/2025 20:09:50 03/04/20 25 03/05/2025 ACUTE HEPAT ITIS hep B core Ab, IgM NEGATI VE negati ve Not Available [facility] ([facility]) [address] [place], [address], 03/07/2025 20:09:50 03/04/20 25 03/05/2025 ACUTE HEPAT ITIS HCV Ab NON REACTI VE nonrea ctive Not Available [facility] ([facility]) [address] [place], [address], 03/07/2025 20:09:50 03/04/20 25 03/05/2025 INTER PRETA TION: interpretati on: Commen t Not infec reyna with HCV unles s early or acute infec tion is suspe cted (whic h may be delay ed in an immun ocomp romis ed indiv idual ), or other evide nce exist s to indic ate HCV infec tion. Not Available [facility] ([facility]) [address] [place], [address], 03/07/2025 20:09:51 03/04/2003/07/2025 CHLAM YDIA/ GC AMPLI FICAT ION chlamydia trachomatis, MARK NEGATI VE negati ve Not Available [facility] ([facility]) [address] [place], [address], 03/07/2025 20:09:51 03/04/2003/07/2025 CHLAM YDIA/ GC AMPLI FICAT ION neisseria gonorrhoeae, MARK NEGATI VE negati ve Not Available [facility] ([facility]) [address] [facility] [place], [place], [address], 03/07/2025 20:09:51 03/04/2003/05/2025 TARAN+A MA+ MA+LK M AB actin (smooth muscle) antibody 6 units 0-19 Negat anastasia 0 - 19 Weak posit anastasia 20 - 30 Moder ate to stron g posit anastasia >30 Actin Antib odies are found in 52-85 % of patie nts with autoi mmune hepat itis or chron ic activ e hepat itis and in 22% of patie nts with prima ry bilia ry cirrh osis. Not Available [facility] ([facility]) [address] [place], [address], 03/07/2025 20:09:52 03/04/20 25 03/05/2025 TARAN+A MA+ MA+LK M AB mitochondria l (M2) antibody <20.0 units 0.0-20 .0 Negat anastasia 0.0 - 20.0 Equiv ocal 20.1 - 24.9 Posit anastasia >24.9 Mitoc hondr ial (M2) Antib odies are found in 90-96 % of patie nts with prima ry bilia ry cirrh osis. Not Available [facility] ([facility]) [address] [facility] [place], [place], [address], 03/07/2025 20:09:52 03/04/20 25 03/07/2025 TARAN+A MA+ MA+LK M AB TARAN direct NEGATI VE negati ve Not Available [facility] ([facility]) [address] [facility] [place], [place], [address], 03/07/2025 20:09:52 03/04/2003/07/2025 TARAN+A MA+ MA+LK M AB liver-kidney microsomal Ab 1.5 units 0.0-20 .0 Negat anastasia 0.0 - 20.0 Equiv ocal 20.1 - 24.9 Posit anastasia >24.9 LKM type 1 antib odies are detec reyna in patie nts with autoi mmune hepat itis type 2 and in up to 8% of patie nts with chron ic HCV infec tion. Not Available [facility] ([facility]) [address] [facility] [place], [place], [address], 03/07/2025 20:09:52 03/04/20 25 03/05/2025 GGT GGT 25 IU/L 0-60 Not Available [facility] ([facility]) [address] [facility] [place], [place], [address], 03/07/2025 20:09:52 03/04/2003/04/2025 visua l acuit y* R Eye Uncorrected Not Available In-O ffice Order Internal Use Only DO Not Attach Compendium DO Not Attach Compendium, Do Not Delete/merge, [id number] 03/04/2025 15:42:25 03/04/20 25 03/04/2025 visua l acuit y* L Eye Uncorrected Not Available In-O ffice Order Internal Use Only DO Not Attach Compendium DO Not Attach Compendium, Do Not Delete/merge, [id number] 03/04/2025 15:42:25 02/13/20 25 02/12/2025 CT, abdom en + pelvi s, w/ contr ast No observ ation record ed. [facility] [address], [place], [address], 03/04/2025 15:13:00 03/09/20 25 03/08/2025 US, liver No observ ation record ed. [facility] [address], [place], [address], 03/09/2025 12:16:01 Result Notes None recorded. Problems Name Problem SNOMED Code Status Onset Date Resolution Date Notes Provider Name and Address Organization Details Recorded Time Upper respiratory infection 81950999 Completed 10/13/2014 LANDON Child, [place] - [facility] 6 12:53:35 Impacted cerumen 26644169 Completed 10/13/2014 Socorro Fallon RN null, [place] - [place] [facility] 12:53:35 Lesion of lip 467529904 Completed 02/27/2016 LANDON Child, [place] - [facility] 6 12:53:35 Oral lipoma 086020790 Completed 02/27/2016 Liya Fallon RN null, [place] - [place] 6 12:53:35 Upper respiratory infection 62902287 Completed 02/27/2016 Socorro Fallon RN null, [place] - [place] [facility] 12:53:35 Obesity 682865679 Active Jeramie Mast [employer] WORKER- Attn: Milan g,[address] [facility], [place], [address], [place] [facility] 3 16:08:03 Impacted cerumen 65531602 Completed 02/27/2016 LANDON Child, [place] - [facility] 6 12:53:35 Hearing test abnormal 461842851 Completed 01/01/2017 LANDON Child, [place] - [facility] 7 11:43:49 Excessive cerumen in ear canal 319650009 Completed 01/01/2017 Socorro Fallon RN [place] [facility] 7 11:25:27 Allergic rhinitis 78094033 Active Socorro Fall[place] RN [place] [facility] 6 12:53:35 Dyslipidemi a 344193270 Active 2019 ISAIAS White Attn: Accountin bisi,[address] [place], [address], [place] [facility] 5 15:22:21 Dysmenorrhe a 864651659 Active 2021 ISAIAS White Attn: Accountin g,[address] [place], [address], [place] [facility] 3 16:08:03 Increased body mass index 36546529 Active 2022 ISAIAS White Attn: Accountin g,[address] [place], [address], [place] [facility] 3 17:04:07 Childhood obesity 143309959 Active 2022 ISAIAS White Attn: Accountisaac g,[address] [place], [address], [place] [facility] 3 17:04:06 Closed, displaced fracture of nasal bone 267225232 Active 2023 ISAIAS White Attn: Accountin g,[address] [place], [address], [place] [facility] 4 16:12:26 Body mass index 30+ - obesity 136191339 Active 2024 ISAIAS White Attn: Accountin g,[address] [place], [address], [place] [facility] 5 16:09:04 Menorrhagia 940238498 Active 2024 ISAIAS White Attn: Milan mathews,[address] [facility], [place], [address], [facility] - [facility] 5 16:37:26 Generalized anxiety disorder 24215966 Active 2024 ISAIAS White Attn: Milan mathews,[address] [facility], [place], [address], [facility] 5 13:48:45 Generalized hyperhidros is 290290672 Active 2024 ISAIAS White Attn: Accountisaac mathews,[address] [facility], [place], [address], [facility] - [facility] 5 13:49:22 Uses oral contracepti on 0780340 Active 2024 ISAIAS White Attn: Milan mathews,[address] [facility], [place], [address], [facility] - [facility] 5 15:18:01 Reduced visual acuity 41861212 Active 2024 ISAIAS White Attn: Milan mathews,[address] [facility], [place], [address], [facility] - [facility] 5 15:43:20 Steatotic liver disease 374656921 Active 2024 ISAIAS White Attn: Milan mathews,[address] [facility], [place], [address], [facility] - [facility] 5 15:47:31 Generalized abdominal pain 051651685 Active 2024 ISAIAS White Attn: Milan mathews,[address] [facility], [place], [address], [facility] - [facility] 5 17:24:28 Problem Notes None recorded. Procedures Surgical History Date Name Laterality Status Provider Name and Address Organization Details Recorded Time 4 Cerumen Removal completed ISAIAS White Attn: Accounting,[address] [facility], [place], [address], [place] [facility] 05/18/2014 13:26:25 Imaging Results None recorded. Procedure Notes None recorded. Medical Equipment None Reported. Allergies No known drug allergies Medications Name Sig Start Date Stop Date Status Note LastModified by Organization Details LastModified Time cyclobenzap rine 10 mg tablet 07/29 completed Not Available Not Available Not Available montelukast [...] completed Not Available Not Available Not Available doxycycline hyclate 100 mg capsule TAKE 2 CAPSULES BY MOUTH TOGETHER FOR THE FIRST DAY, THEN TAKE 1 CAPSULE ONCE A DAY FOR 20 DAYS 03/04 completed Not Available Not Available Not Available [...] completed Not Available Not Available Not Available hydrocortis one 2.5 % topical cream with perineal applicator APPLY A THIN LAYER TO THE AFFECTED AREA(S) BY TOPICAL ROUTE 2-4 TIMESDAIL Y 10/11 completed Not Available Not Available Not Available famotidine 20 mg tablet TAKE 1 TABLET BY MOUTH TWICE DAILY BEFORE MEAL(S) active Not Available Not Available No t Available oseltamivir 75 mg capsule Take 1 capsule twice a day by oral route for 5 days. 05/03 completed Not Available Not Available Not Available ibuprofen 400 mg tablet TAKE 1 TABLET BY MOUTH EVERY 6 HOURS 07/29 completed Not Available Not Available Not Available docusate sodium 100 mg capsule Take 1 capsule every day by oral route. 10/11 completed Not Available Not Available Not Available azithromyci n 100 mg/5 mL oral suspension 08/07 completed Not Available Not Available Not Available prednisolon e 15 mg/5 mL oral solution 07/10 completed Not Available Not Available Not Available azelastine 137 mcg (0.1 %) nasal spray USE 1 SPRAY(S) IN EACH NOSTRIL EVERY 12 HOURS active Not Available Not Available No t Available fluticasone propionate 50 mcg/actuati on nasal spray,suspe nsion USE 2 SPRAY(S) IN EACH NOSTRIL ONCE DAILY 03/04 completed Not Available Not Available Not Available sertraline 50 mg tablet TAKE 1 TABLET BY MOUTH ONCE DAILY FOR 90 DAYS active Not Available Not Available No t Available amoxicillin 875 mg-potassiu m clavulanate 125 mg tablet TAKE 1 TABLET BY MOUTH EVERY 12 HOURS FOR 7 DAYS 07/18 completed Not Available Not Available Not Available Ventolin HFA 90 mcg/actuati on aerosol inhaler 08/07 completed Not Available Not Available Not Available hydrocortis one 1 % topical cream with perineal applicator APPLY A THIN LAYER TO THE AFFECTED AREA(S) BY TOPICAL ROUTE 2-4 TIMESDAIL Y 10/11 completed Not Available Not Available Not Available [...] completed Not Available Not Available Not Available Linzess 145 mcg capsule Take 1 capsule every day by oral route, for constipat ion. 10/11 completed Not Available Not Available Not Available PreviDent 5000 Booster Plus 1.1 % dental paste BRUSH TEETH NORMAL AT BED TIME. THEN ADD A PEA SIZE AMOUNT OF PREVIDENT TO THE TOOTHBRUS H AND BRUSH ON. DO NOT EAT OR DRINK ANYTHING FOR 30 MINUTES. LEAVE ON OVERNIGHT . 07/31 completed Not Available Not Available Not Available Drysol 20 % topical solution Apply 1 applicati on every day by topical route at bedtime, for excessive sweating. 2024 active Not Available Not Available Not Avai lable Slynd 4 mg (28) tablet Take 1 tablet every day by oral route. 2024 active Not Available Not Available Not Avai lable Vitals Date Recorded Body height Body mass index (BMI) [Percentile] Per age and sex Body mass index (BMI) Body weight Oxygen saturation Oxygen saturation in Arterial blood by Pulse oximetry Heart rate Body temperature Systolic And Diastolic Provider Name and Address Organization Details Last Updated DateTime 147.32 cm 96.78 % 34.5 kg/m2 43533.7 4 g 100 % 100 % 78 /min 98.6 [degF] 122/80 mm[Hg] Rosario cardoza MA [facility] 5 15:54:43 Date Recorded Body mass index (BMI) [Percentile] Per age and sex Body mass index (BMI) Body weight Body temperature Systolic And Diastolic Provider Name and Address Organization Details Last Updated DateTime 5 96.94 % 34.9 kg/m2 69865.5 2 g 98.2 [degF] 102/66 mm[Hg] Severino Corbin MA [facility] 5 14:39:05 Date Recorded Body height Provider Name an d Address Organization Details Last Updated DateTime 07/29/2024 147.32 cm Rosario cardoza MA [facility] 07/29/2024 14:30:54 Date Recorded Body height Body mass index (BMI) Body mass index (BMI) [Percentile] Per age and sex Body weight Body temperature Heart rate Oxygen saturation Oxygen saturation in Arterial blood by Pulse oximetry Systolic And Diastolic Provider Name and Address Organization Details Last Updated DateTime 5 147.32 cm 35 kg/m2 96.91 % 51445.3 3 g 97.8 [degF] 82 /min 100 % 100 % 106/60 mm[Hg] Severino Corbin MA [facility] 5 12:29:06 Date Recorded Body height Body mass index (BMI) Body mass index (BMI) [Percentile] Per age and sex Body weight Oxygen saturation Oxygen saturation in Arterial blood by Pulse oximetry Heart rate Body temperature Systolic And Diastolic Provider Name and Address Organization Details Last Updated DateTime 5 147.32 cm 34.1 kg/m2 96.45 % 07185.5 6 g 99 % 99 % 76 /min 98 [degF] 104/62 mm[Hg] Rosario cardoza MA [facility] 5 13:09:14 Date Recorded Body height Body mass index (BMI) Body mass index (BMI) [Percentile] Per age and sex Body weight Body temperature Oxygen saturation Oxygen saturation in Arterial blood by Pulse oximetry Heart rate Systolic And Diastolic Provider Name and Address Organization Details Last Updated DateTime 5 147.32 cm 35 kg/m2 96.73 % 78105.3 3 g 98.9 [degF] 99 % 99 % 97 /min 108/64 mm[Hg] Socorro Fallon RN [facility] 5 15:08:36 Social History Question Answer Notes LastModified by Organizat ion Details LastModified Time Tobacco Smoking Status Never Smoker YOHANA Farmer, [facility] 05/18/2014 12:38:07 Animal Exposure? No [email or web address] Informat ion not available 05/18/2014 Do You Wear A Helmet When Biking? No [email or web address] Information not available 05/18/2014 Are You Blind Or Do You Have Difficulty Seeing? No Information not available 09/28/2021 What Is Your Level Of Caffeine Consumption? Occasional Information not available 05/18/2014 What Type Of Silk Folder Do You Use? None [email or web address] Information not available 05/18/2014 In The 14 [...] Type Of Diet Are You Following? REGULAR [email or web address] Information not available 05/18/2014 Have There Been Any Changes To Your Family Or Social Situation? Yes [email or web address] Information not available 05/18/2014 What Is The Fluoride Status Of Your Home? Fluoridated [email or web address] Information not available 05/18/2014 Are There Any Guns Present In Your Home? Yes [email or web address] Information not available 05/18/2014 What Is Your Home Situation? Both Parents [email or web address] Information not available 05/18/2014 Do You Use Insect Repellent Routinely? No [email or web address] Information not available 05/18/2014 Car Seat Type Or Seat Belt? Seat Belt [email or web address] Information not available 05/18/2014 Parent Involvement? Both Parents Involved Information not available 05/18/2014 Riding In Car Front Seat? Yes [email or web address] Information not available 05/18/2014 What Was The Date Of Your Most Recent Tobacco Screening? 03/04/2025 [email or web address] Information not available 03/04/2025 What Is Your Parents' Marital Status? [email or web address] Information not available 05/18/2014 Pool Exposure No [email or web address] Information not available 05/18/2014 What Is Your Relationship Status? Single Information not available 07/31/2022 What Is The Name Of Your School? [employer] 2021-2023 Information not available 10/29/2021 Do You Use Your Seat Belt Or Car Seat Routinely? Yes Information not available 10/29/2021 Are You Sexually Active? No Information not available 09/28/2021 Do You Have Any Siblings? 3 Information not available 12/20/2019 Do You Have Smoke And Carbon Monoxide Detectors In Your Home? No [email or web address] Information not available 05/18/2014 Are You Passively Exposed To Smoke? No [email or web address] Information not available 05/18/2014 How Much Tobacco Do You Smoke? No Information not available 07/05/2019 Do You Use Sunscreen Routinely? No [email or web address] Information not available 05/18/2014 Has Tobacco Cessation Counseling Been Provided? No Information not available 07/31/2022 Year In School [id number] School Year Information not available 07/31/2022 Sex: Female Functional Status Question Answer Note LastModified by Organizat ion Details LastModified Time Do you use any illicit or recreational drugs? No Information not available 09/28/2021 Do you or have you ever used any other forms of tobacco or nicotine? No Information not available 07/31/2022 What is your level of alcohol consumption? None Information not available 09/28/2021 Do you or have you ever used smokeless tobacco? Never used [email or web address] tobacco Information not available 07/05/2019 Are you currently employed? No Information not available 09/28/2021 Are you able to care for yourself independently? Yes Information not available 09/28/2021 Do you or have you ever used e-cigarettes or vape? Never used electronic cigarettes Information not available 07/05/2019 What is your exercise level? Moderate Information not available 09/28/2021 Mental Status Question Answer Note LastModified by Organization D etails LastModified Time Do you feel stressed (tense, restless, nervous, or anxious, or unable to sleep at night)? [id number] Information not available 07/31/2022 Are you or have you been involved with bullying? No [email or web address] Information not available 05/18/2014 Family History Relationship Description Onset Age of [...] Statement/Question Response Flow Light Date of LMP 02/04/2025 Frequency of Cycle (Q days) 28 Menses Monthly Y Duration of Flow (days) 7 Age at Menarche 12 Current Control Method BCPs LMP Definite Obstetrics History GPAL:G 0 P 0 0 0 0 Immunizations Vaccine Type Date Status Note Provider Nam e and Address Organization Details Recorded Time HPV9 6 completed Not Available [facility] 07/10/2019 02:32:03 HPV9 6 completed Not Available [facility] 07/10/2019 02:41:31 Tdap 7 completed Not Available [facility] 07/10/2019 02:29:58 meningococcal MCV4P 7 completed Not Available [facility] 07/10/2019 02:33:04 Influenza, split virus, quadrivalent, PF 7 completed Not Available [facility] 07/10/2019 02:33:05 influenza, split (incl. purified surface antigen) 6 completed Not Available [facility] 03/04/2025 14:56:16 influenza, unspecified formulation 7 completed Not Available [facility] 03/04/2025 14:56:16 influenza, unspecified formulation 7 completed Not Available [facility] 03/04/2025 14:56:16 influenza, split (incl. purified surface antigen) 9 completed Not Available [facility] 03/04/2025 14:56:16 influenza, split (incl. purified surface antigen) 1 completed Not Available [facility] 03/04/2025 14:56:16 Influenza, split virus, trivalent, preservative 1 completed Not Available [facility] 03/04/2025 14:56:16 Influenza, split virus, trivalent, PF 1 completed Not Available [facility] 03/04/2025 14:56:16 Influenza, split virus, trivalent, preservative 2 completed Not Available [facility] 03/04/2025 14:56:16 Influenza, split virus, quadrivalent, PF 3 completed Not Available [facility] 03/04/2025 14:56:16 Influenza, split virus, trivalent, preservative 4 completed Not Available [facility] 07/10/2019 02:32:02 Influenza, split virus, quadrivalent, PF 8 completed Not Available [facility] 07/10/2019 02:43:11 Influenza, split virus, quadrivalent, PF 9 completed Not Available [facility] 07/10/2019 02:42:38 Influenza, split virus, quadrivalent, PF 9 completed Not Available [facility] 07/10/2019 02:40:53 meningococcal MCV4P 2 completed STEPHANY [place] [facility] 09/28/2021 16:18:29 meningococcal B, OMV 2 completed STE[place] [facility] 09/28/2021 16:19:59 DTaP 0 completed Som Grajeda, R[place] null, [place] - [...] [facility] 05/18/2014 12:48:40 IPV 0 completed Som Grajeda, [place] - [...] 05/18/2014 12:49:25 Hib (PRP-T) 6 completed Som Grajeda, [place] [facility] 05/18/2014 12:50:00 [...] 12:51:49 meningococcal MCV4, unspecified formulation 0 completed Som Garjeda [place] [facility] 05/18/2014 12:52:01 meningococcal B, OMV 2 completed Severino Corbin [place] [facility] 10/29/2021 17:32:07 TST-PPD intradermal 8 completed YOHANA Farmer [place] [facility] 05/18/2014 12:53:30 Influenza, split virus, quadrivalent, PF 3 completed Jeramie Mast [facility] Attn: Accounting[address] [place], [address], [place] [facility] 07/31/2022 16:47:36 Influenza, split virus, quadrivalent, PF 4 completed Jeramie Mast [facility] Attn: Accounting[address] [place], [address], [place] [facility] 07/22/2023 12:36:58 Influenza, split virus, trivalent, preservative 5 completed Not Available [facility] 07/10/2019 02:32:29 Influenza, split virus, trivalent, preservative 5 completed Rosario Washington [place] null, [place] [facility] 07/15/2024 16:52:44 Influenza, split virus, trivalent, PF 5 completed Rosario [place] [facility] 03/04/2025 18:07:44 HPV9 6 completed Not Available [facility] 07/10/2019 02:41:24 Past Encounters Encounter ID Performer Location Encounter Start Date Encounter Closed Date Diagnosis/Indication Diagnosis SNOMED-CT Code Diagnosis ICD10 Code Diagnosis IMO Codes Diagnosis Note [id number] VASYL WhiteGARCÍA [facility] [address] [place] [address] 05/18/2014 12:27:45 05/18/2014 17:55:39 Upper respiratory infection 96774488 Impacted cerumen 22223783 [id number] Jorge Moses MD [facility] [address] [place] [address] 06/24/2014 11:38:11 06/27/2014 18:11:01 Well child 664610800 will wait to start HPV series Allergic rhinitis 95960659 [id number] Jorge Moses MD [place] [address] [address] 10/13/2014 12:20:57 10/17/2014 17:17:33 Lesion of lip 278695815 will send for removal/ma nagement at ENT oral lipoma/muc ocele blood filled Oral lipoma 757191225 [id number] [place] [address] [address] 04/21/2015 12:32:04 04/24/2015 13:59:15 Allergic rhinitis 62668634 J30.9 Administra tion of influenza vaccine 57085894 Z23 [id number] [place] [address] [address] 08/07/2015 10:00:13 08/10/2015 11:27:48 Well child 171096118 Z00.129 Upper resp iratory infection 80100350 J06.9 Obesity 509240157 E66.9 Allergic rhinitis 431159 04 J30.9 Impacted cerumen 7346962 6 H61.23 L>R Mom to use H202 and H20 mixture equal parts apply 4 drops to ear canal daily--no Qtips into ear canal [id number] [place] [address] [place] [address] 4 10/13/2015 16:31:47 10/20/2015 11:31:55 Obesity 098100046 E66.9 #6 weight gain in 2 months Administra tion of viral vaccine 62407203 Z23 [id number] Jorge Moses MD [facility] [address] [place] [address] 4 02/27/2016 12:37:00 03/04/2016 17:09:48 Hearing test abnormal 849344570 R94.120 Administra tion of viral vaccine 01941646 Z23 Excessive cerumen in ear canal 168193479 H61.23 L>R Mother will apply cerumen removal ear drops at home will recheck hearing at next visit. [id number] Jorge Moses MD [facility] [address] [place] [address] 06/28/2016 15:46:21 07/25/2016 11:32:14 Well child 631446085 Z00.129 Puberty handouts in Lao/En glish Dental exam every 6 months Healthy diet Increase physical activity Requires a meningitis vaccination 466056811 Z28.3 Environmental allergy 42 9130097 T78.49XD Obesity 534177654 E66.9 #6 weight gain in 3 months [id number] Jorge Moses MD [facility] [address] [place] [address] 10/03/2016 11:32:20 10/04/2016 12:55:26 Well child 462975667 Z00.129 Obesity 844145213 E66.9 [id number] Jorge Moses MD [facility] [address] [place] [address] 01/01/2017 11:19:30 01/10/2017 15:32:58 Well child 705476407 Z00.129 school form completed Dental exam every 6 months Healthy diet Increase physical activity History an d physical examination, school 69886980 Z02.0 Tuberculos is screening 932094331 Z11.1 Obesity 125853843 E66.9 Avoid all breads, potatoes, cereal, pasta, rice, margarine, refined sugars, milk yogurt, ice cream, juices, soda (including diet), beer, and manmade or manufactur ed desserts. Enjoy steak, fish, chicken (no skin), pork, butter, vegetables , beans, nuts, whole eggs, cheese (low fat or skim), cream in your coffee. [id number] Jorge Moses MD [facility] [address] [address] 07/10/2017 15:16:20 07/17/2017 15:06:26 Well child 505826517 Z00.129 Dental exam every 6 months Healthy diet Increase physical activity Obesity 934378541 E66.9 Avoid all breads, potatoes, cereal, pasta, rice, margarine, refined sugars, milk yogurt, ice cream, juices, soda (including diet), beer, and manmade or manufactur ed desserts. Enjoy steak, fish, chicken (no skin), pork, butter, vegetables , beans, nuts, whole eggs, cheese (low fat or skim), cream in your coffee. Dyslipidemia 851906499 E 78.5 [id number] Jorge Moses MD [facility] [address] [place] [address] 07/14/2018 14:45:57 07/17/2018 15:33:37 Well child visit 406490751 Z00.70 Allergic rhinitis 250119 04 J30.9 Obesity 687813149 E66.9 Avoid all breads, potatoes, cereal, pasta, rice, margarine, refined sugars, milk yogurt, ice cream, juices, soda (including diet), beer, and manmade or manufactur ed desserts. Enjoy steak, fish, chicken (no skin), pork, butter, vegetables , beans, nuts, whole eggs, cheese (low fat or skim), cream in your coffee. Diet education 64668883 Z71.3 Exercises education, guidance, and counseling 752361708 Z71.82 Menarche 88724194 E30.0 Acne 10264515 L70.9 neutrogena acne rash [id number] Jorge Moses MD [place] [address] [place] [address] 08/13/2018 12:35:04 08/14/2018 09:44:08 Influenza-like symptoms 045956610 R68.89 Exposure t o influenzavirus 027314285 Z20.828 Influenza caused by Influenza A virus 672721241 J09.X2 [id number] Jorge Moses MD [place] [address] [place] [address] 05/03/2019 12:45:26 05/07/2019 18:00:14 Allergic rhinitis 33505234 J30.9 [id number] Jorge Moses MD [place] [address] [place] [address] 07/05/2019 12:04:34 07/06/2019 09:31:53 Diet education 41821108 Z71.3 Exercises education, guidance, and counseling 883020042 Z71.82 Well child 682320413 Z00 .129 Dental exam every 6 months Healthy diet Increase physical activity Childhood obesity 441274 003 Z68.54 Dyslipidemia 355576166 E 78.5 increase physical activity, heart healthy diet, drink water Comedonal acne 581907704 L70.0 use Neutrogena Acne was [id number] Jorge Moses MD [facility] [address] [place] [address] 12/20/2019 10:52:30 12/21/2019 07:00:45 History and physical examination, school 75126424 Z02.0 Had negative PPD 01/01/2017w ear glasses Childhood obesity 192753 003 Z68.54 BMI 30.9 98%-ile Comedonal acne 305181867 L70.0 use Neutrogena Acne was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
--- OUTSIDE RECORDS SUMMARY | 2025-04-05 03:38 | XMS_ITS | Clinical Summary ---
Author Organization [facility] Address [address] [place], [place] [address] Care Team Providers Care Tree Doctor Name Role Phone SeanJeramie mcallister MATIAS Primary Care Provider [phone] Encounters Date Type Department Care Team Description 03/01/2025 8:41 AM CDT - 03/01/2025 11:59 PM CDT Hospital Encounter [place] [id number] Chronic sinusitis, unspecified location; Nonintractable headache, unspecified chronicity pattern, unspecified headache type Discharge Disposition: Discharge to home or self care from Last 3 Months Social History Tobacco Use Types Packs/Day Years Used Date Smoking Tobacco: Never Assessed Comments Unknown Sex and Gender Information Value Date Recorded Sex Assigned at Not on file 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
--- OUTSIDE RECORDS SUMMARY | 2025-04-05 03:38 | XMS_ITS | Clinical Summary ---
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
[2025-04-05 04:06] LABS: BEDSIDEPREGUCG Negative (Negative)
[2025-04-05 04:10] LABS: Hematocrit 37.4 % (37.0-47.0); Hemoglobin 12.3 g/dL (12.0-15.0); Immature Granulocyte Percent A 0.4 % (0-0.5); Lymphocytes Absolute Auto 2.86 K/mm3 (0.9-3.2); Mean Corpuscular HGB Conc 32.9 g/dl (32-36); Mean Corpuscular Hemoglobin 27.5 pg (26-34); Mean Corpuscular Volume 83.5 fl (80-100); Nucleated Red Blood Cells Absolute Auto 0.000 K/mm3 (0.0-0.012); Nucleated Red Blood Cells Perc 0.0 % (0.0-0.2); Platelet Count Result 417 k/mm3 (150-375); Red Blood Count 4.48 M/mm3 (4.2-5.4); White Blood Count 12.1 K/mm3 (4.5-10.0)
[2025-04-05 04:30] LABS: Alanine Aminotransferase 23 U/L (6-35); Albumin Level 4.3 g/dL (3.7-5.6); Alkaline Phosphatase 77 U/L (45-116); Anion Gap 11 mmol/L (4-12); Aspartate Amino Transferase 34 U/L (14-36); Bilirubin,Total 0.4 mg/dL (0.2-1.3); Blood Urea Nitrogen 18 mg/dL (8-21); Calcium 9.0 mg/dL (8.9-10.7); Carbon Dioxide 22 mmol/L (22-30); Chloride 104 mmol/L (98-107); Estimated Glomerular Filt Rate > 60; Glucose 108 mg/dL (65-110); Lipase 58 U/L (23-300); Potassium 3.9 mmol/L (3.4-5.0); Sodium 137 mmol/L (134-143); Total Protein 7.5 g/dL (6.3-8.6)
[2025-04-05 04:31] LABS: Add Urine Microscopic? YES; Appearance Urine Cloudy (Clear); Glucose Urine UA Negative (Negative); Leukocyte Esterase Ur Negative LEU/UL (Negative); Need Manual Microscopic Reviewed; Nitrate Urine Negative (Negative); Non Pathogenic Casts 0-2; Specific Grav Ur 1.028 (1.001-1.035)
--- NOTE | 2025-04-05 07:36 | PC.NURSE ---
Assumed care of pt from Susannah. Pt reports she has no pain at this time.
--- NOTE | 2025-04-05 09:13 | ED_ITS ---
HPI - Abdominal Pain General Chief Complaint: Abdominal Pain Stated Complaint: abd pain Time Seen by Provider: 04/05/25 03:33 Source: patient and family Mode of arrival: ambulatory History of Present Illness HPI narrative: Patient presents with report of left upper quadrant abdominal pain for approximately 1 hour. She had 1 episode of emesis. She states this has intermittently been going on for months and seen approximately 1 month ago for the same at which time she was told she had a fatty liver. She reports that her symptoms seem to stop for a while but now are back. She had been having nausea but not now. She also notes that she is not having pain currently at the time of my examination. The pain is intermittent. She confirms she has a primary care physician. No previous abdominal surgeries. Last menstrual period was the end of last month. Last bowel movement was yesterday and she does note that she has been constipated but denies any bleeding. No dysuria, urgency, frequency, or hematuria. Related Data Home Medications ?Medication ?Instructions ?Recorded ?Confirmed ?Last Taken ?Type oral contraceptive PO 09/06/24 11/08/24 Unknown History Allergies Allergy/AdvReac Type Severity Reaction Status Date / Time No Known Allergies Allergy Verified 04/05/25 02:11 REPLACED BY [facility] Past Medical History Medical History Fatty infiltration of liver on CT 2024 Sinus headache Facial pain Nasal congestion Allergic rhinitis Hypertrophy of inferior nasal turbinate Social History Social History Social History: Caffeine-None Smoking status: Never smoker Alcohol intake: never Substance use: never Substance use type: does not use Do You Feel Safe in your Home?: Yes Lack of Transportation: No Lack of Food: Never True Current Housing: I Have Housing Concerned About Future Housing: No Difficulty Paying Gas/Electric Bills: No Difficulty Paying for Meds: No Currently Unemployed: No Education: High School Diploma/GED Difficulty w/ Childcare or Family Care: No Exam 2 Narrative: GENERAL: Well-appearing, well-nourished, and in no acute distress. HEAD: Normocephalic, atraumatic. EYES: Non injected, non icteric ENT: Nares clear, no rhinorrhea or epistaxis. Gross auditory acuity intact. NECK: Supple. No meningismus. CHEST: Speaking in full sentences. No respiratory distress. HEART: Regular rate and rhythm. . ABDOMEN: Soft, nondistended. No tenderness to palpation throughout. No rigidity or guarding. Not peritoneal; Moncada sign negative. EXTREMITIES: Normal range of motion. No lower extremity edema. SKIN: Warm, dry, no rash. NEURO: No focal deficits. Alert and oriented. Answering questions. Following commands. Normal speech without aphasia or dysarthria. PSYCH: Normal mood and affect. Course Vital Signs Vital signs: Vital Signs Temperature 98.3 F 04/05/25 02:09 Pulse Rate 88 04/05/25 02:09 Respiratory Rate 18 04/05/25 02:09 Blood Pressure 130/71 04/05/25 02:09 Pulse Oximetry 99 04/05/25 02:09 Oxygen Delivery Room Air 04/05/25 02:09 Temperature 98.5 F 04/05/25 03:40 Pulse Rate 75 04/05/25 10:56 Respiratory Rate 20 04/05/25 10:56 Blood Pressure 109/70 04/05/25 10:56 Pulse Oximetry 100 04/05/25 10:56 Oxygen Delivery Room Air 04/05/25 02:09 MDM - Abdominal Pain MDM Narrative Medical decision making narrative: Patient presents with report of left upper quadrant pain approximately 1 hours duration. This has been associated with 1 episode of emesis. She reports that this has happened before and was seen previously approximately 1 month ago and told she had a fatty liver. Episode stops for a while but have returned. Currently asymptomatic at the time of my exam without any nausea or pain as she states that the pain is intermittent. Benign abdominal exam. In the emergency department she is afebrile with vital signs within normal limits. Will defer imaging at this time. test negative. Mild leukocytosis and a thrombocytosis, the latter is chronic. Normal renal function. Chemistry otherwise unremarkable. Normal lipase. Urinalysis with bacteriuria and some other mild abnormalities although with moderate squamous cells and likely contaminated. In addition, she denies any dysuria, urgency frequency or hematuria thus reasonable to defer treatment at this time. Famotidine and GI cocktail ordered. Although not the most sensitive test, abdominal Xray is ordered. There is evidence of stool burden. Patient is given Metamucil and MiraLax while in the emergency department. Discharged with recommendations for hydration, fiber diet, and a bowel regimen that includes stool softeners and laxative p.r.n.. In sum, This patient presents with abdominal pain of unclear etiology although felt to be caused likely by constipation given her reportedly stating constipation, evidence of this on xray, and symptoms that sound consistent with this given their intermittent nature, likely related to peristalsis. Their evaluation has not identified an emergent etiology for the abdominal pain. Specifically, given the very benign exam, normal laboratory values, and lack of significant risk factors, I have a very low suspicion for appendicitis, ischemic bowel, bowel perforation, or any other life threatening disease. I have explained the level of uncertainty with undifferentiated abdominal pain and clearly explained the need to follow-up as noted on the discharge instructions, or return to the Emergency Department immediately if the pain worsens, develops fever, persistent and uncontrollable vomiting, or for any new symptoms or concerns. Although the tests in the ED were essentially normal, there is still a possibility of a process such as appendicitis, diverticulitis, cholecystitis, ulcer, early bowel obstruction, mesenteric ischemia, kidney stone, or even kidney infection which could subsequently cause disability or . The patient understands the return precautions which would warrant presenting to the ED for a re-evaluation due to the possibility of significant surgical or medical process. Otherwise stable for discharge. Differential Diagnosis Differential diagnosis: Likely abdominal pain, calculus of kidney, constipation, diverticulitis, endometriosis, pancreatitis and other () Lab Data Attestation: I reviewed the patient's lab results. 04/05/25 04:01 04/05/25 04:01 Labs: Lab Results 04/05/25 04/05/25 Range/Units 04:01 04:04 WBC 12.1 H (4.5-10.0) K/mm3 RBC 4.48 (4.2-5.4) M/mm3 Hgb 12.3 (12.0-15.0) g/dL Hct 37.4 (37.0-47.0) % MCV 83.5 (80-100) fl MCH 27.5 (26-34) pg MCHC 32.9 (32-36) g/dl RDW 13.6 (11.5-14.5) % Plt Count 417 H (150-375) k/mm3 MPV 9.1 (7.4-10.4) fl Immature Gran % (Auto) 0.4 (0-0.5) % Neut % (Auto) 67.3 (45.5-73.1) % Lymph % (Auto) 23.6 (18.3-44.2) % Runnels % (Auto) 6.0 (2.6-8.5) % Eos % (Auto) 2.4 (0-4.4) % Baso % (Auto) 0.3 (0.2-1.2) % Lymph # (Auto) 2.86 (0.9-3.2) K/mm3 Runnels # (Auto) 0.7 H (0.1-0.6) K/mm3 Eos # (Auto) 0.3 (0-0.3) K/mm3 Baso # (Auto) 0.0 (0.0-0.1) K/mm3 Abs Immat Gran (auto) 0.05 H (0.00-0.031) K/mm3 Absolute Neuts (auto) 8.1 H (1.3-6.7) K/mm3 Absolute Nucleated RBC 0.000 (0.0-0.012) K/mm3 Nucleated RBC % 0.0 (0.0-0.2) % Sodium 137 (134-143) mmol/L Potassium 3.9 (3.4-5.0) mmol/L Chloride 104 (98-107) mmol/L Carbon Dioxide 22 (22-30) mmol/L Anion Gap 11 (4-12) mmol/L BUN 18 (8-21) mg/dL Creatinine 0.55 L (0.7-1.0) mg/dL Estim Creat Clear Calc Not Reportable Estimated GFR > 60 (59 - ) Glucose 108 (65-110) mg/dL Calcium 9.0 (8.9-10.7) mg/dL Total Bilirubin 0.4 (0.2-1.3) mg/dL AST 34 (14-36) U/L ALT 23 (6-35) U/L Alkaline Phosphatase 77 (45-116) U/L Total Protein 7.5 (6.3-8.6) g/dL Albumin 4.3 (3.7-5.6) g/dL Lipase 58 (23-300) U/L Urine Color Yellow (Yellow) Urine Appearance Cloudy H (Clear) Urine pH 6.0 (5.0-9.0) Ur Specific [place] 1.028 (1.001-1.035) Urine Protein 1+ H (Negative) mg/dL Urine Glucose (UA) Negative (Negative) mg/dL Urine Ketones Trace H (Negative) mg/dL Ur Blood (Man) Negative (Negative) Urine Nitrate Negative (Negative) Urine Bilirubin Negative (Negative) Urine Urobilinogen 1.0 (<2.0) mg/dL Add Ur Microanalysis Reviewed Leukocyte Esterase Rfl Negative (Negative) ELDA/UL Urine RBC 0-2 (0-2) /hpf Urine WBC 11-20 H (0-3) /hpf Ur Squamous Epith Cells Many H (Few) /hpf Calcium Oxalate Crystal Present (None) /hpf Urine Bacteria 2+ H /hpf Urine Casts 0-2 POC Urine HCG, Qual Negative (Negative) Imaging Data Attestation: I personally reviewed and interpreted this imaging study as follows: My impression: Fair amount of stool burden on my independent interpretation of plain film imaging Radiologist's impression: ITS Impressions Abdomen X-Ray 04/05/25 09:59 IMPRESSION: 1. Moderate volume stool. Discharge Plan Discharge Clinical Impression: Leukocytosis, Thrombocytosis, Constipation, Abdominal pain, LUQ Patient Disposition: Home Condition: Stable Instructions: Antibiotic Form, Constipation (ED), High Fiber Diet (ED), Abdominal Pain (ED) Additional Instructions: You evidence of stool burden/constipation on your x-ray and your symptoms also sound consistent with this being the cause. It is important you drink plenty of water and eat a diet high in fiber. A bowel regimen that includes fiber/psyllium/Metamucil can help in addition to MiraLax to supplement. If still not having bowel movement or symptomatic, you can use a laxative such as magnesium citrate. Otherwise continue taking your medications as prescribed. Follow-up with your primary care provider. If you have nausea/vomiting again you can use the oral distintegrating tablets of Zofran. There is a level of uncertainty with undifferentiated abdominal pain. Return to the Emergency Department immediately if the pain worsens, develops fever, persistent and uncontrollable vomiting, or for any new symptoms or concerns. Although the tests in the ED were essentially normal, there is still a possibility of an alternative diagnosis. Patient Language: Wolof Prescriptions: New psyllium husk [Metamucil] 0.4 gram capsule 0.4 g PO DAILY Qty: 30 0RF polyethylene glycol 3350 [Miralax] 17 gram/dose powder 17 g PO DAILY Qty: 119 0RF magnesium citrate Solution 150 ml PO DAILY PRN (Reason: constipation) Qty: 296 0RF ondansetron 4 mg tablet,disintegrating 4 mg PO Q8H PRN (Reason: nausea and vomiting) Qty: 7 0RF No Action oral contraceptive PO azelastine 137 mcg (0.1 %) spray,non-aerosol 1 spray intranasal Q12H 30 Days Qty: 30 1RF Rx Instructions: administer into each nostril fluticasone propionate 50 mcg/actuation spray,suspension 2 spray intranasal DAILY 30 Days Qty: 16 1RF Rx Instructions: administer into each nostril Follow-up/Referrals: Sean,MATIAS Bobo [Primary Care Provider] Stand Alone Forms: Work/School Release IP Time of Disposition: 10:15
[2025-04-05] MEDS: BELLADONNA ALK/PHENOB ELIX 10 ML, MAG HYDROX/ALUMINUM HYD/SIMETH 30 ML, LIDOCAINE 2% VI... PO (09:46)
[2025-04-05] MEDS: FAMOTIDINE 20 MG/2 ML VIAL IV PUSH (10:14)
[2025-04-05] MEDS: PSYLLIUM POWDER PACKET 1 PACKET PO (10:46)
== END 2025-04-05 10:57 | disposition home or self-care (01) ==
PROVIDERS: Emergency Medicine; Emergency Provider Student in an Organized Health Care Education/Training Program; PCP Registered Nurse
DX: R10.12 Left upper quadrant pain (principal); D72.829 Elevated white blood cell count, unspecified; D75.839 Thrombocytosis, unspecified; K59.00 Constipation, unspecified
CPT/HCPCS: 36415; 74018; 80053; 81001; 81025; 83690; 85025; 96374; 99284; A9270

== ENCOUNTER 2025-06-14 13:30 | Emergency (ER) | payer OTHER, SELFPAY ==
--- NOTE | 2025-06-14 13:35 | ED_ITS ---
HPI - URI/Sore Throat General Chief Complaint: Fever Stated Complaint: Fever, Body ache, Sore throat Time Seen by Provider: 06/14/25 14:00 Source: patient Mode of arrival: ambulatory Limitations: no limitations History of Present Illness HPI Narrative: Diane is a 19-year-old female patient presenting to the clinic today with complaints of fever, body aches, sore throat, nasal congestion, and cough x2 days. She has taken Tylenol for symptoms. She denies any shortness of breath or chest pain. Related Data Home Medications ?Medication ?Instructions ?Recorded ?Confirmed ?Last Taken ?Type oral contraceptive PO 09/06/24 11/08/24 Unknown History Allergies Allergy/AdvReac Type Severity Reaction Status Date / Time No Known Allergies Allergy Verified 04/05/25 02:11 Review of Systems Review of Systems: Pertinent positives per HPI. Patient denies any rash, visual changes, dizziness, shortness of breath, chest pain, palpitations, nausea, vomiting, diarrhea, constipation, abdominal pain, or any urinary issues. [facility] Past Medical History Medical History Fatty infiltration of liver on CT 2024 Sinus headache Facial pain Nasal congestion Allergic rhinitis Hypertrophy of inferior nasal turbinate Social History Social History Social History: Caffeine-None Smoking status: Never smoker Alcohol intake: never Substance use: never Substance use type: does not use Lack of Transportation: No Lack of Food: Never True Current Housing: I Have Housing Concerned About Future Housing: No Difficulty Paying Gas/Electric Bills: No Difficulty Paying for Meds: No Currently Unemployed: No Education: High School Diploma/GED Difficulty w/ Childcare or Family Care: No Comments At the time of my signature, I reviewed and agree with the nursing past medical, surgical, social, and family history. There is no relevant family history pertinent to the patient complaint. Exam Narrative: General: Well-developed, well nourished, in no apparent distress Head: Normocephalic, atraumatic Eyes: Pupils equally round and reactive to light bilaterally, EOM intact, sclera and conjunctive clear, no discharge, lids normal Ears: TMs intact and congested, ear canals clear, no drainage, grossly hearing normal. Nose: Nares patent, clear nasal discharge, no inflammation, no sinus tenderness. Mouth: Oral pharynx red without lesions or masses, good dentition, MMM. Neck: Supple, trachea midline, no enlargement of anterior or posterior cervical nodes, no thyroid masses or goiter palpable. Cardio: Tachycardic- Regular rate and rhythm, s1 and s2 normal, no murmur appreciated. Resp: Clear to auscultation bilaterally, no rhonchi, rales, wheezing or rubs Course Course Level of Care: Express Care Visit Vital Signs Vital signs: Vital Signs Temperature 38.2 C H 06/14/25 13:58 Pulse Rate 125 H 06/14/25 13:58 Respiratory Rate 18 06/14/25 13:58 Blood Pressure 126/76 06/14/25 13:58 Pulse Oximetry 100 06/14/25 13:58 Oxygen Delivery Room Air 06/14/25 13:58 Temperature 38.2 C H 06/14/25 13:58 Pulse Rate 125 H 06/14/25 13:58 Respiratory Rate 18 06/14/25 13:58 Blood Pressure 126/76 06/14/25 13:58 Pulse Oximetry 100 06/14/25 13:58 Oxygen Delivery Room Air 06/14/25 13:58 MDM MDM Narrative Medical decision making narrative: At the time of visit patient is resting comfortably on the exam table. Patient appears to be nontoxic. Complaints of fever, body aches, sore throat, nasal congestion, and cough x2 days. She has taken Tylenol for symptoms. She denies any shortness of breath or chest pain. On exam patient has bilateral TMs intact and congested, clear nasal drainage, no anterior turbinate inflammation, oral pharynx red, no cervical lymphadenopathy, lung sounds are clear, heart rates tachycardic- regular rate and rhythm. Strep, COVID, and influenza testing was ordered. Labs: Strep and COVID testing were negative. Influenza A testing was positive. Plan: Patient has influenza A. Work note was given. Supportive measures were discussed with the patient and they voiced understanding discharge instructions and agrees to treatment plan. Return precautions reviewed Differential Diagnosis Differential Diagnosis: Differential diagnostic considerations for upper respiratory infection include upper respiratory infection, croup, otitis media, sinusitis, viral infection, bronchitis, influenza, pharyngitis, strep, uvulitis. Lab Data Labs: Lab Results 06/14/25 06/14/25 Range/Units 13:54 14:12 POC Influenza A Ag Positive Positive (Negative) POC Influenza B Ag Negative Negative (Negative) POC SARS CoV-2 Ag Negative Negative (Negative) POC Grp A Strep Screen Negative Negative (Negative) Discharge Plan Discharge Clinical Impression: Influenza A Patient Disposition: Home Condition: Stable Instructions: Antibiotic Form, Influenza (ED) Additional Instructions: COVID and strep test were negative in the clinic today. We will send strep for culture and if this comes back positive we will contact him place you on antibiotics at that time. Influenza test was positive for influenza A. May take DayQuil/NyQuil for cold/flu symptoms Increase fluids and stay well hydrated May take Tylenol or motrin as directed on bottle for pain/fever May use Flonase 1 spray in each nare daily May take OTC antihistamines such as Zyrtec or Claritin daily as directed on bottle May apply Vicks vapor rub to chest to open sinuses Sinus rinses for congestion Cepacol spray, cough drops, throat lozenges, warm tea with honey/lemon, gargle salt water to soothe throat BRAT diet for diarrhea Clear liquids x 24 hours then advance as tolerated for nausea/vomiting Go to the ED if you develop a worsening in your condition- high fever not cont rolled by Tylenol or Motrin, dehydration, weakness, lethargy, shortness of breath, or chest pain. Follow up with your PCP in 3-5 days if symptoms persist. Patient Language: Nepali Prescriptions: No Action oral contraceptive PO Follow-up/Referrals: Sean,MATIAS Bobo [Primary Care Provider] Stand Alone Forms: Work/School Release IP Time of Disposition: 14:08 Quality NIHSS Nursing Documentation ED NIHSS nursing documentation: reviewed/agree
[2025-06-14 13:58] VITALS: BP 126/76; PULSE 125; RESP 18; TEMP 38.2; O2SAT 100
[2025-06-14 14:14] LABS: EDCOVIDSCREEN Negative (Negative); EDINFLUASCREEN Positive (Negative); EDINFLUBSCREEN Negative (Negative); EDSTREPNEGPOS1 Negative (Negative)
[2025-06-14 14:14] LABS: EDCOVIDSCREEN Negative (Negative); EDINFLUASCREEN Positive (Negative); EDINFLUBSCREEN Negative (Negative); EDSTREPNEGPOS1 Negative (Negative)
== END 2025-06-14 14:20 | disposition home or self-care (01) ==
PROVIDERS: Emergency Provider Nurse Practitioner Family; PCP Registered Nurse
DX: J10.1 Influenza due to other identified influenza virus with other respiratory manifestations (principal); Z20.822 Contact with and (suspected) exposure to COVID-19
CPT/HCPCS: 87081; 87426; 87804; 87880; 99213; G0463